=== PATIENT | female | born 1935 | race Caucasian/White ===

== ENCOUNTER 2016-06-21 12:35 | Inpatient (IN) | payer OTHER ==
[2016-06-21 12:46] VITALS: BMI 37.0
[2016-06-21] MEDS ORDERED: ZOFRAN 4 MG/2 ML IVP STA (12:55)
[2016-06-21] MEDS ORDERED: MORPHINE 2 MG/ML SYRINGE IVP STA (12:58)
[2016-06-21 13:07] LABS: ABG PCO2 43.1 mmHg (35-45); ABG PH 7.338 (7.35-7.45)
[2016-06-21 13:08] LABS: ABG BASE EXCESS -3 (-2.0-2.0); ABG HCO3 23.2 (22.0-26.0); ABG TCO2 24 (22.0-28.0)
[2016-06-21 13:23] LABS: BASOPHILS % (AUTO) 0.2 % (0.0-3.0); EOSINOPHILS % (AUTO) 0.1 % (0.0-7.0); HEMATOCRIT 37.4 % (37.0-47.0); HEMOGLOBIN 11.6 g/dl (12.0-16.0); IMMATURE GRANULOCYTE % (AUTO) 0.4 % (0.0-5.0); LYMPHOCYTES # (AUTO) 0.4 K/uL (0.60-3.4); LYMPHOCYTES % (AUTO) 3.5 (10.0-50.0); MEAN CORPUSCULAR HEMOGLOBIN 30.6 pg (27.0-31.0); MEAN CORPUSCULAR VOLUME 98.7 fl (81.0-99.0); MONOCYTES # (AUTO) 0.9 K/uL (0.4-2.0); MONOCYTES % (AUTO) 8.2 (0-10); NEUTROPHILS # (AUTO) 9.5 K/ul (2.0-6.9); NEUTROPHILS % (AUTO) 87.6; PLATELET COUNT 129 10^3/uL (140-440); RED BLOOD COUNT 3.79 10^6/ul (4.20-5.40); WHITE BLOOD COUNT 10.79 K/ul (4.6-10.2)
--- NOTE | 2016-06-21 13:54 | DI ---
[facility] Diagnostic Report YASMINE ROCHA :1935 CHEST, 1V AP ONLY DOS:06/21/2016 EXAM: Chest one view, frontal view only. HISTORY: Chest pain. COMPARISON: 05/26/2016. FINDINGS: Median sternotomy wires, prosthetic cardiac valve and left-sided pacemaker noted. Heart is enlarged. Atherosclerotic calcifications are present. There is no pulmonary vascular congestion. The lungs are clear. No pleural effusion or pneumothorax is seen. No acute osseous abnormality i s identified. Since the prior study, there has been no significant interval change. IMPRESSION: No acute cardiopulmonary process. THIS IS AN ELECTRONICALLY VERIFIED REPORT 06/21/2016 1:49 PM: Manuelito Gaffney M.D. Manuelito Gaffney M.D. TD: 06/21/2016 01:49 PM MARK / MARK
[2016-06-21] MEDS ORDERED: SOLU-MEDROL 125 MG IVP STA (14:24)
[2016-06-21 14:26] LABS: ALBUMIN 3.7 g/dL (3.4-5.0); ALBUMIN/GLOBULIN RATIO 1.03; ANION GAP 17.2; BILIRUBIN,TOTAL 1.3 mg/dL (0.00-1.20); BUN/CREATININE RATIO 26.85; CALCIUM 9.9 mg/dL (8.2-10.2); CREATININE 2.16 mg/dL (0.60-1.30); POTASSIUM 4.2 mmol/L (3.5-5.10); TOTAL PROTEIN 7.3 g/dL (5.8-8.1); TROPONIN I 0.045 ng/ml (0.0000-0.4000)
[2016-06-21] MEDS ORDERED: DUONEB NEB STA (14:55)
[2016-06-21 15:00] LABS: PROTHROMBIN TIME 47.7 SEC (9.3-11.0)
--- NOTE | 2016-06-21 15:59 | ED.PDOC ---
General ED Provider: Dr. YOSELIN TORRES JR Chief Complaint: Shortness of Air Stated Complaint: patient was being seen at dr. hall's office for follow up after admission for cellulitis left leg. while at the office it was noted patient has cyanotic nail beds and cough and congestion. both legs swollen and tight.[End]98.3 100 28 80% 153/60 patient states that right lower abd. hurts when she coughs[End]. anem chol afib kd arth cad. DIANDRA ROCHA STATES THAT PATIENT'S SON DOES NOT WANT PATIENT PLACED BACK ON NAMENDA OR ANY ALZHEIMERS MEDICATIONS. HE TOLD HER THAT HE WOULD DAVIDA IF SHE WAS PLACED BACK ON ANY. [ End ] Time Seen by Physician: 12:40 Mode of Arrival: Wheelchair Information Source: Patient, Family Exam Limitations: Clinical condition Primary Care Provider: AMANDO HALL Nursing and Triage Documentation Reviewed and Agree: No Review of Systems - Review Of Systems Constitutional: Reports: Malaise, Weakness Eyes: Reports: No symptoms Ears, Nose, Mouth, Throat: Reports: No symptoms Respiratory: Reports: Cough, Short of air Musculoskeletal: Reports: Muscle pain Skin: Reports: Change in color, Cyanosis Neurological: Reports: No symptoms Endocrine: Reports: No symptoms Hematologic/Lymphatic: Reports: No symptoms All Other Systems: Other Past Medical History - Past Medical History Previously Healthy: No Endocrine: Reports: Dyslipidemia Cardiovascular: Reports: CAD, A-Fib Respiratory: Reports: None Hematological: Reports: Anemia Gastrointestinal: Reports: None Genitourinary: Reports: CKD Neuro/Psych: Reports: None Musculoskeletal: Reports: Arthritis Cancer: Reports: None Last Menstrual Period: n/a Other Pertinent Past Medical History: anemia chol afib kd arth cad valve replacement--bladder surg--knee surg - Surgical History General Surgical History: Reports: Orthopedic (knee surg), Other (-bladder surg- -). Denies: CABG (valve replacement-) - Family History Family History: Reports: Unknown - Social History Smoking Status: Former smoker Hx Substance Use: No Alcohol Screening: None Physical Exam - Physical Exam Appearance: Ill-appearing, Thin Ill-appearing: Severe Pain Distress: Moderate Neck: Supple Respiratory: Airway patent, Breath sounds diminished, Wheezes Cardiovascular: RRR GI/: Soft, Tender Musculoskeletal: Limited ROM, Limited strength Skin: Warm, Cyanotic Neurological: Alert, Disoriented Interpretation - Radiology Interpretation Radiology Interpretation By: Radiologist Radiology Results: Negative Exam Interpreted: Other (leg ultrasound) - EKG Interpretation Time of EKG #1: 12:55 Rhythm: Other (paced) ST Segment: Other (twave inversion v5 v6 v1 v2) Physician Notification - Case Discussed Physician Notified: JOSE Time of Notification: 16:59 (admit hold lasix hold coumadin give 30cc/hr breathing rx and steroid rx) Critical Care Note - Critical Care Note Total Time (mins): 20 Course - Course Hematology/Chemistry: 06/21/16 13:05 06/21/16 13:05 Orders, Labs, Meds: Lab Review 06/21/16 06/21/16 13:00 13:05 WBC 10.79 H RBC 3.79 L Hgb 11.6 L Hct 37.4 MCV 98.7 MCH 30.6 MCHC 31.0 L RDW Coeff of Naima 16.2 H Plt Count 129 L Immature Gran % (Auto) 0.4 Neut % (Auto) 87.6 Lymph % (Auto) 3.5 L Gaines % (Auto) 8.2 Eos % (Auto) 0.1 Baso % (Auto) 0.2 Immature Gran # (Auto) 0.0 Neut # 9.5 H Lymph # 0.4 L Gaines # 0.9 Eos # 0.0 Baso # 0.0 PT 47.7 H INR 4.63 H* D-Dimer 952.09 H Puncture Site R brach O2 Saturation 83.0 L ABG pH 7.338 L ABG pCO2 43.1 ABG pO2 50.0 L* ABG HCO3 23.2 ABG Total CO2 24 ABG Base Excess -3 L Christoph Test + FiO2 % 21.0 Sodium 144 Potassium 4.2 Chloride 105 Carbon Dioxide 26 Anion Gap 17.2 BUN 58 H Creatinine 2.16 H Estimated GFR (MDRD) 22.00 BUN/Creatinine Ratio 26.85 Glucose 159 H Lactic Acid 19.0 Calcium 9.9 Total Bilirubin 1.30 H AST 56 H ALT 47 Alkaline Phosphatase 54 Total Creatine Kinase 108 Troponin I 0.0450 B-Natriuretic Peptide 2180 H Total Protein 7.3 Albumin 3.7 Globulin 3.6 Albumin/Globulin Ratio 1.03 Orders Category Date Time Status ADMIT PATIENT INPATIENT .TO [facility] (MONITORED BED) ADMISSION 06/21/16 16: 50 Active ABG DRAW REQUEST Stat CARDIO 06/21/16 12:49 Completed EKG-(ED ONLY) Stat CARDIO 06/21/16 12:48 Completed NEBULIZER TREATMENT Routine CARDIO 06/21/16 16:58 Ordered NEBULIZER TREATMENT Stat CARDIO 06/21/16 14:56 Completed ACTIVITY .BR with BRP CARE 06/21/16 16:50 Active ACTIVITY .Early Mobilization for VTE Prevention CARE 06/21/16 16:50 Active INTAKE & OUTPUT Q8HR CARE 06/21/16 16:51 Active TELEMETRY MONITORING TELE CARE 06/21/16 16:53 Active CARDIAC DIET DIETARY 06/21/16 Dinner Ordered ED IV/MEDIPORT/POWERPORT .ONCE EMERGENCY 06/21/16 12:48 Active O2 [ED APPLY O2] .ONCE EMERGENCY 06/21/16 12:50 Active ABG Stat LAB 06/21/16 13:00 Completed B-TYPE NATRIURETIC PEPTIDE Stat LAB 06/21/16 13:05 Completed BLOOD CULTURE Stat LAB 06/21/16 13:05 Received CBC W/ AUTO DIFF DAILY@0600 LAB 06/22/16 06:00 Ordered CBC W/ AUTO DIFF DAILY@0600 LAB 06/23/16 06:00 Ordered CBC W/ AUTO DIFF DAILY@0600 LAB 06/24/16 06:00 Ordered CBC W/ AUTO DIFF DAILY@0600 LAB 06/25/16 06:00 Ordered CBC W/ AUTO DIFF DAILY@0600 LAB 06/26/16 06:00 Ordered CBC W/ AUTO DIFF DAILY@0600 LAB 06/27/16 06:00 Ordered CBC W/ AUTO DIFF DAILY@0600 LAB 06/28/16 06:00 Ordered CBC W/ AUTO DIFF DAILY@0600 LAB 06/29/16 06:00 Ordered CBC W/ AUTO DIFF DAILY@0600 LAB 06/30/16 06:00 Ordered CBC W/ AUTO DIFF DAILY@0600 LAB 07/01/16 06:00 Ordered CBC W/ AUTO DIFF DAILY@0600 LAB 07/02/16 06:00 Ordered CBC W/ AUTO DIFF DAILY@0600 LAB 07/03/16 06:00 Ordered CBC W/ AUTO DIFF DAILY@0600 LAB 07/04/16 06:00 Ordered CBC W/ AUTO DIFF DAILY@0600 LAB 07/05/16 06:00 Ordered CBC W/ AUTO DIFF DAILY@0600 LAB 07/06/16 06:00 Ordered CBC W/ AUTO DIFF DAILY@0600 LAB 07/07/16 06:00 Ordered CBC W/ AUTO DIFF DAILY@0600 LAB 07/08/16 06:00 Ordered CBC W/ AUTO DIFF DAILY@0600 LAB 07/09/16 06:00 Ordered CBC W/ AUTO DIFF DAILY@0600 LAB 07/10/16 06:00 Ordered CBC W/ AUTO DIFF DAILY@0600 LAB 07/11/16 06:00 Ordered CBC W/ AUTO DIFF Stat LAB 06/21/16 13:05 Completed COMPREHENSIVE METABOLIC PANEL DAILY@0600 LAB 06/22/16 06:00 Ordered COMPREHENSIVE METABOLIC PANEL DAILY@0600 LAB 06/23/16 06:00 Ordered COMPREHENSIVE METABOLIC PANEL DAILY@0600 LAB 06/24/16 06:00 Ordered COMPREHENSIVE METABOLIC PANEL DAILY@0600 LAB 06/25/16 06:00 Ordered COMPREHENSIVE METABOLIC PANEL DAILY@0600 LAB 06/26/16 06:00 Ordered COMPREHENSIVE METABOLIC PANEL DAILY@0600 LAB 06/27/16 06:00 Ordered COMPREHENSIVE METABOLIC PANEL DAILY@0600 LAB 06/28/16 06:00 Ordered COMPREHENSIVE METABOLIC PANEL DAILY@0600 LAB 06/29/16 06:00 Ordered COMPREHENSIVE METABOLIC PANEL DAILY@0600 LAB 06/30/16 06:00 Ordered COMPREHENSIVE METABOLIC PANEL DAILY@0600 LAB 07/01/16 06:00 Ordered COMPREHENSIVE METABOLIC PANEL DAILY@0600 LAB 07/02/16 06:00 Ordered COMPREHENSIVE METABOLIC PANEL DAILY@0600 LAB 07/03/16 06:00 Ordered COMPREHENSIVE METABOLIC PANEL DAILY@0600 LAB 07/04/16 06:00 Ordered COMPREHENSIVE METABOLIC PANEL DAILY@0600 LAB 07/05/16 06:00 Ordered COMPREHENSIVE METABOLIC PANEL DAILY@0600 LAB 07/06/16 06:00 Ordered COMPREHENSIVE METABOLIC PANEL DAILY@0600 LAB 07/07/16 06:00 Ordered COMPREHENSIVE METABOLIC PANEL DAILY@0600 LAB 07/08/16 06:00 Ordered COMPREHENSIVE METABOLIC PANEL DAILY@0600 LAB 07/09/16 06:00 Ordered COMPREHENSIVE METABOLIC PANEL DAILY@0600 LAB 07/10/16 06:00 Ordered COMPREHENSIVE METABOLIC PANEL DAILY@0600 LAB 07/11/16 06:00 Ordered COMPREHENSIVE METABOLIC PANEL Stat LAB 06/21/16 13:05 Completed CREATINE KINASE Stat LAB 06/21/16 13:05 Completed D-DIMER Stat LAB 06/21/16 13:05 Completed LACTIC ACID Stat LAB 06/21/16 13:05 Completed PT WITH INR DAILY@0600 LAB 06/22/16 06:00 Ordered PT WITH INR DAILY@0600 LAB 06/23/16 06:00 Ordered PT WITH INR DAILY@0600 LAB 06/24/16 06:00 Ordered PT WITH INR DAILY@0600 LAB 06/25/16 06:00 Ordered PT WITH INR DAILY@0600 LAB 06/26/16 06:00 Ordered PT WITH INR DAILY@0600 LAB 06/27/16 06:00 Ordered PT WITH INR DAILY@0600 LAB 06/28/16 06:00 Ordered PT WITH INR DAILY@0600 LAB 06/29/16 06:00 Ordered PT WITH INR DAILY@0600 LAB 06/30/16 06:00 Ordered PT WITH INR DAILY@0600 LAB 07/01/16 06:00 Ordered PT WITH INR DAILY@0600 LAB 07/02/16 06:00 Ordered PT WITH INR DAILY@0600 LAB 07/03/16 06:00 Ordered PT WITH INR DAILY@0600 LAB 07/04/16 06:00 Ordered PT WITH INR DAILY@0600 LAB 07/05/16 06:00 Ordered PT WITH INR DAILY@0600 LAB 07/06/16 06:00 Ordered PT WITH INR DAILY@0600 LAB 07/07/16 06:00 Ordered PT WITH INR DAILY@0600 LAB 07/08/16 06:00 Ordered PT WITH INR DAILY@0600 LAB 07/09/16 06:00 Ordered PT WITH INR DAILY@0600 LAB 07/10/16 06:00 Ordered PT WITH INR DAILY@0600 LAB 07/11/16 06:00 Ordered PT WITH INR Stat LAB 06/21/16 13:05 Completed TROPONIN I Stat LAB 06/21/16 13:05 Completed 0.9 % Sodium Chloride [Saline Flush] MEDS 06/21/16 12:48 Active 1 syr IVF PRN PRN Albuterol Sulfate 0.083% Neb [Albuterol 0.083% Neb] MEDS 06/21/16 20:00 Ordered 1 vial NEB RTQID Bimatoprost Opth [Lumigan] MEDS 06/21/16 21:00 Ordered 1 drop OP 2100 Ferrous Sulfate [Ferrous Sulfate] MEDS 06/22/16 09:00 Ordered 325 mg PO DAILY Ipratropium/Albuterol Neb [Duoneb] MEDS 06/21/16 14:55 Discontinued 1 vial NEB ONCE STA Methylprednisolone Sod Succ/Pf [Solu-Medrol 125 mg] MEDS 06/21/16 14:24 Discontinued 125 mg IVP ONCE STA Methylprednisolone Sod Succ/Pf [Solu-Medrol 125 mg] MEDS 06/21/16 21:00 Ordered 125 mg IVP Q8HR Metoprolol Tartrate [Lopressor] MEDS 06/21/16 21:00 Ordered 50 mg PO BID Multivitamin [Multi-Vitamin Daily] MEDS 06/22/16 09:00 Ordered 1 tab PO DAILY Bells-3/Dha/Epa/Fish Oil [Bells 3 500 Softgel] MEDS 06/21/16 21:00 Ordered 2 tab PO BID Potassium Chloride [K-Dur] MEDS 06/22/16 09:00 Ordered 10 meq PO DAILY Sodium Chloride 0.9% [Sodium Chloride] 1,000 ml MEDS 06/21/16 17:00 Ordered IV 30 mls/hr Trihexyphenidyl HCl [Trihexyphenidyl HCl] MEDS 06/21/16 21:00 Ordered 0.5 tab PO BID Vit D3/Folic Acid/B2/B6/B12 [Folgard Tablet] MEDS 06/28/16 09:00 Ordered 50,000 units PO WEEKLY RESUSCITATION STATUS Routine OTHERS 06/21/16 16:50 Ordered CHEST, 1V AP ONLY Stat RADS 06/21/16 12:48 Completed U/S VENOUS SCAN TRACI LEGS Stat RADS 06/21/16 12:49 Taken Medications Generic Name Dose Route Start Last Admin Trade Name Freq PRN Reason Stop Dose Admin Albuterol Sulfate 1 vial 06/21/16 20:00 Albuterol 0.083% Neb NEB RTQID KEEGAN Bimatoprost 1 drop 06/21/16 21:00 Lumigan OP 2100 KEEGAN Sodium Chloride 1,000 mls @ 30 mls/hr 06/21/16 17:00 Sodium Chloride IV .[id number] KEEGAN Methylprednisolone Sodium Succinate 125 mg 06/21/16 21:00 Solu-Medrol 125 Mg IVP Q8HR KEEGAN Metoprolol Tartrate 50 mg 06/21/16 21:00 Lopressor PO BID KEEGAN Non-Formulary Medication 50,000 units 06/28/16 09:00 Vit D3/Folic Acid/B2/B6/B12 [Folgard Tablet] PO WEEKLY KEEGAN Non-Formulary Medication 0.5 tab 06/21/16 21:00 Trihexyphenidyl Hcl [Trihexyphenidyl Hcl] PO BID KEEGAN Non-Formulary Medication 2 tab 06/21/16 21:00 Bells-3/Dha/Epa/Fish Oil [Bells 3 500 Softgel] PO BID KEEGAN Non-Formulary Medication 325 mg 06/22/16 09:00 Ferrous Sulfate [Ferrous Sulfate] PO DAILY KEEGAN Non-Formulary Medication 1 tab 06/22/16 09:00 Multivitamin [Multi-Vitamin Daily] PO DAILY KEEGAN Potassium Chloride 10 meq 06/22/16 09:00 K-Dur PO DAILY KEEGAN Sodium Chloride 1 syr 06/21/16 12:48 06/21/16 14:40 Saline Flush IVF 1 syr PRN PRN Administration To flush IV Discontinued Medications Generic Name Dose Route Start Last Admin Trade Name Freq PRN Reason Stop Dose Admin Albuterol/Ipratropium 1 vial 06/21/16 14:55 06/21/16 15:09 Duoneb NEB 06/21/16 14:56 1 vial ONCE STA Administration Methylprednisolone Sodium Succinate 125 mg 06/21/16 14:24 06/21/16 14:39 Solu-Medrol 125 Mg IVP 06/21/16 14:25 125 mg ONCE STA Administration Vital Signs: Temp Pulse Resp BP Pulse Ox 06/21/16 12:37 98.3 F 100 H 28 H 153/60 H 80 L Departure - Departure Time of Disposition: 16:45 Disposition: ADMITTED INPATIENT Discharge Problem: CHF (congestive heart failure), Renal failure (ARF), acute on chronic Condition: Stable Pt referred to PMD for follow-up: Yes Allergies/Adverse Reactions: Allergies codeine Adverse Reaction (Verified 05/17/16 11:21) Vomiting escitalopram [From Lexapro] Adverse Reaction (Verified 06/21/16 13:29) morphine Adverse Reaction (Verified 05/17/16 11:21) Confusion nifedipine [From Procardia] Adverse Reaction (Verified 05/17/16 11:21) pioglitazone HCl [From Actos] Adverse Reaction (Verified 05/17/16 11:21) Vomiting propoxyphene napsylate [From Darvocet-N 100] Adverse Reaction (Verified 11:21) Vomiting ropinirole [From Requip] Adverse Reaction (Verified 06/21/16 13:29) ropinirole HCl [From Requip] Adverse Reaction (Verified 05/17/16 11:21) Vomiting Upcgbbi-Npg-Xwx Reductase Inhibitor Adverse Reaction (Verified 05/17/16 11:21) Vomiting pink dye Allergy (Uncoded 08/22/13 04:59) Home Medications: Ambulatory Orders Bimatoprost Opth [Lumigan] 1 drop OP 2100 11/23/12 Metoprolol Tartrate [Lopressor] 50 mg PO BID 11/23/12 Ferrous Sulfate 325 mg PO DAILY 05/26/16 Multivitamin [Multi-Vitamin Daily] 1 tab PO DAILY 05/26/16 Bells-3/Dha/Epa/Fish Oil [Bells 3 500 Softgel] 2 tab PO BID 05/26/16 Trihexyphenidyl HCl 0.5 tab PO BID 05/26/16 Vit D3/Folic Acid/B2/B6/B12 [Folgard Tablet] 50,000 units PO WEEKLY 05/26/16 Warfarin Sodium [Coumadin] 5 mg PO QPM #30 tablet 06/01/16 Furosemide [Lasix Tab] 20 mg PO QDAC #30 tablet 06/11/16 Potassium Chloride [K-Dur] 10 meq PO DAILY #30 tab 06/11/16
[2016-06-21] MEDS ORDERED: ALBUTEROL 0.083% NEB NEB SCH (20:00)
[2016-06-21] MEDS: SODIUM CHLORIDE 1,000 ML IV SCH (21:00)
[2016-06-21] MEDS ORDERED: OMEGA PO SCH (21:00)
[2016-06-21] MEDS ORDERED: FISH OIL PO SCH (21:00)
[2016-06-21] MEDS ORDERED: TRIHEXYPHENIDYL HCL PO SCH (21:00)
[2016-06-21] MEDS ORDERED: EPA PO SCH (21:00)
[2016-06-21] MEDS ORDERED: DHA PO SCH (21:00)
[2016-06-21] MEDS ORDERED: LOPRESSOR PO SCH (21:00)
[2016-06-21] MEDS ORDERED: LOPRESSOR ONE (21:48)
[2016-06-21] MEDS ORDERED: OMEGA-3 FISH OIL ONE (21:49)
[2016-06-21] MEDS: SOLU-MEDROL 125 MG IVP SCH (21:50)
[2016-06-21] MEDS: LUMIGAN OP SCH (21:50)
[2016-06-21] MEDS: DUONEB NEB SCH (22:51)
[2016-06-22] MEDS: SOLU-MEDROL 125 MG IVP SCH ×3 (05:17→20:26)
[2016-06-22 05:22] LABS: BASOPHILS % (AUTO) 0.5 % (0.0-3.0); HEMATOCRIT 34.2 % (37.0-47.0); HEMOGLOBIN 10.4 g/dl (12.0-16.0); IMMATURE GRANULOCYTE % (AUTO) 0.3 % (0.0-5.0); LYMPHOCYTES # (AUTO) 0.2 K/uL (0.60-3.4); LYMPHOCYTES % (AUTO) 3.8 (10.0-50.0); MEAN CORPUSCULAR HGB CONC 30.4 (31.8-35.4); MEAN CORPUSCULAR VOLUME 98.6 fl (81.0-99.0); MONOCYTES # (AUTO) 0.2 K/uL (0.4-2.0); MONOCYTES % (AUTO) 3.8 (0-10); NEUTROPHILS # (AUTO) 5.7 K/ul (2.0-6.9); NEUTROPHILS % (AUTO) 91.6; PLATELET COUNT 94 10^3/uL (140-440); RED BLOOD COUNT 3.47 10^6/ul (4.20-5.40); WHITE BLOOD COUNT 6.24 K/ul (4.6-10.2)
[2016-06-22] MEDS: DUONEB NEB SCH ×4 (05:25→22:20)
[2016-06-22 06:01] LABS: ANION GAP 13.9; BILIRUBIN,TOTAL 1.04 mg/dL (0.00-1.20); BUN/CREATININE RATIO 29.44; CALCIUM 9.3 mg/dL (8.2-10.2); CREATININE 1.8 mg/dL (0.60-1.30); POTASSIUM 3.9 mmol/L (3.5-5.10)
[2016-06-22 06:09] LABS: PROTHROMBIN TIME 51.3 SEC (9.3-11.0)
[2016-06-22] MEDS: MICRO-K CAP PO SCH (08:50)
[2016-06-22] MEDS: FERROUS SULFATE PO SCH (08:50)
[2016-06-22] MEDS: OMEGA-3 FISH OIL PO SCH ×2 (08:50→20:27)
[2016-06-22] MEDS: LOPRESSOR PO SCH ×2 (08:50→20:27)
[2016-06-22] MEDS: MULTIVITAMIN PO SCH (08:50)
[2016-06-22] MEDS: TRIHEXYPHENIDYL HCL PO SCH ×2 (08:52→20:30)
[2016-06-22] MEDS ORDERED: NON-FORMULARY MEDICATION (Multivitamin [Multi-Vitamin Daily] 1 TAB) PO SCH (09:00)
[2016-06-22] MEDS ORDERED: NON-FORMULARY MEDICATION (Ferrous Sulfate [Ferrous Sulfate] 325 MG) PO SCH ×22 (09:00)
[2016-06-22] MEDS ORDERED: K-DUR PO SCH (09:00)
--- NOTE | 2016-06-22 11:27 | PCM.PROG ---
Attending Provider: ATTENDING PROVIDER: Dr. VANE GARCIA DATE OF SERVICE: 06/22/16 SUBJECTIVE: This 81 year old WHITE/ F was hospitalized 06/21/16. The patient is admitted with shortness of breath, hypoxemia and URI. The patient is feeling better with less cough. The family agrees for chcf placement as the patient is unable to take of herself at home. REVIEW OF SYSTEMS: CONSTITUTIONAL: No fever, no chills. ENDOCRINE: No weight loss or weight gain. HEENT: No sinus drainage, no sore throat. CVS: No angina symptoms. No CHF symptoms. No palpitations. No atypical chest pain for CAD. No shortness of breath. RESPIRATORY: No cough, no hemoptysis. GI: No melena. No abdominal pain. No nausea, no vomiting. : No hematuria. No polyuria. SKIN: No rash. Multiple freckles. MUSCULOSKELETAL: No pain. FULL SERVICE SUPERVISOR: No blackout, no dizziness. No headache. No double vision. PSYCHIATRIC: Not anxious; no depression. No suicidal thoughts. No homicidal thoughts. PHYSICAL EXAMINATION: GENERAL: Lying in bed in no distress. VITAL SIGNS: Temperature 97 F, Pulse 102, Respiratory Rate 14, BP 127/49, Pulse Ox 97% HEENT: Normocephalic, atraumatic. Mucosa is dry, pallor positive. NECK: No JVP, no carotid bruit. No lymphadenopathy. CARDIAC: S1, S2, no S3. Systolic murmur. LUNGS: Decreased entry with some rhonchi. ABDOMEN: Soft, non-tender. Bowel sounds active. No rigidity, guarding or CVA tenderness. EXTREMITIES: 1+ edema lower extremities bilaterally with some wrinkles. No clubbing, cyanosis. NEUROLOGIC: Awake, alert and oriented x3. LYMPHATIC: No palpable lymph nodes SKIN: Not dry. Intact. MUSCULOSKELETAL: No joint swelling. LAB REVIEW: 06/22/16 05:21 06/22/16 05:21 06/22/16 05:21: WBC 6.24, RBC 3.47 L, Hgb 10.4 L, Hct 34.2 L, MCV 98.6, MCH 30.0 , MCHC 30.4 L, RDW Coeff of Naima 16.3 H, Plt Count 94 L, Immature Gran % (Auto) 0.3, Neut % (Auto) 91.6, Lymph % (Auto) 3.8 L, [place] % (Auto) 3.8, Eos % (Auto) 0.0, Baso % (Auto) 0.5, Immature Gran # (Auto) 0.0, Neut # 5.7, Lymph # 0.2 L, [place] # 0.2 L, Eos # 0.0, Baso # 0.0, PT 51.3 H, INR 4.98 H*, Sodium 143, Potassium 3.9, Chloride 110 H, Carbon Dioxide 23, Anion Gap 13.9, BUN 53 H, Creatinine 1.80 H, Estimated GFR (MDRD) 27.00, BUN/Creatinine Ratio 29.44, Glucose 179 H, Calcium 9.3, Total Bilirubin 1.04, AST 38 H, ALT 39, Alkaline Phosphatase 42 L, Total Protein 6.0, Albumin 3.0 L, Globulin 3.0, Albumin/ Globulin Ratio 1.00 ASSESSMENT: 1. URI 2. Acute on chronic heart failure 3. Chronic renal failure 4. Hypertension 5. Coronary artery disease 6. CABG 7. Dyslipidemia 8. Chronic dependent edema PLAN: 1. Encouraged to keep legs elevated 2. Evaluate for [facility] 3. Continue alycia hassan 4. IV fluids 30 mL/hr Plan and coordination of the patient's care discussed in the presence of Jewelry Salesperson and nurse. CONDITION: STABLE SCRIBED BY: ANGEL MUELLER Manager Furniture scribed while in presence of service performed by Dr. VANE GARCIA on 06/22/16 ([id number])
[2016-06-22] MEDS: LUMIGAN OP SCH (20:27)
[2016-06-23] MEDS: DUONEB NEB SCH ×2 (04:40→10:02)
[2016-06-23 05:20] LABS: HEMATOCRIT 32.3 % (37.0-47.0); HEMOGLOBIN 9.9 g/dl (12.0-16.0); MEAN CORPUSCULAR HEMOGLOBIN 30.1 pg (27.0-31.0); MEAN CORPUSCULAR HGB CONC 30.7 (31.8-35.4); MEAN CORPUSCULAR VOLUME 98.2 fl (81.0-99.0); PLATELET COUNT 92 10^3/uL (140-440); RED BLOOD COUNT 3.29 10^6/ul (4.20-5.40); WHITE BLOOD COUNT 6.21 K/ul (4.6-10.2)
[2016-06-23 05:36] LABS: ALBUMIN/GLOBULIN RATIO 0.94; ANION GAP 14.1; ANISOCYTOSIS NOT PRESENT (NOT PRESENT); BILIRUBIN,TOTAL 0.96 mg/dL (0.00-1.20); BUN/CREATININE RATIO 31.97; CALCIUM 9.4 mg/dL (8.2-10.2); CREATININE 1.72 mg/dL (0.60-1.30); POTASSIUM 4.1 mmol/L (3.5-5.10); TOTAL PROTEIN 6.2 g/dL (5.8-8.1)
[2016-06-23 05:51] LABS: PROTHROMBIN TIME 43.3 SEC (9.3-11.0)
[2016-06-23] MEDS: SOLU-MEDROL 125 MG IVP SCH (06:00)
[2016-06-23] MEDS: SODIUM CHLORIDE 1,000 ML IV SCH (07:03)
[2016-06-23] MEDS ORDERED: PROTONIX PO SCH (08:30)
[2016-06-23] MEDS: FERROUS SULFATE PO SCH (08:51)
[2016-06-23] MEDS: OMEGA-3 FISH OIL PO SCH (08:51)
[2016-06-23] MEDS: MULTIVITAMIN PO SCH (08:51)
[2016-06-23] MEDS: MICRO-K CAP PO SCH (08:51)
[2016-06-23] MEDS: LOPRESSOR PO SCH (08:52)
--- NOTE | 2016-06-23 09:42 | US ---
EXAM: Pedersen scale and color Doppler imaging of the bilateral lower extremities venous structures. COMPARISON: None available. Reason for study: Leg swelling, rule out DVT. FINDINGS: RIGHT LEG: There is spontaneous flow with compression and augmentation seen in the common femoral, greater saph enous, profunda, superficial femoral, popliteal, peroneal, posterior tibial, and anterior tibial vei ns. LEFT LEG: There is spontaneous flow with compression and augmentation demonstrated in the common femoral, grea ter saphenous, profunda, superficial femoral, popliteal, peroneal, posterior tibial, and anterior ti bial veins. IMPRESSION: No ultrasonographic evidence of deep venous thrombosis is seen in either lower extremit y.
--- NOTE | 2016-06-23 10:27 | CM.DICTOOL ---
ADMISSION: 06/21/16 17:41 DISCHARGE: 06/21/16 TO [facility] DATE OF SERVICE: 06/21/16 FINAL DIAGNOSIS CHF, ACUTE RENAL FAILURE, ACUTE ON CHRONIC LEG EDEMA VENOUS STASIS ULCER LEFT ANTEROLATERAL BELLO (HEALED) FREQUENT FALLS AT HOME ATAXIA SHORTNESS OF BREATH WITH SOME CONFUSION ANEMIA HYPERTENSION CVA BY HISTORY CHRONIC KIDNEY DISEASE, STAGE 3 PARKINSON'S DISEASE DEMENTIA ATRIAL FIBRILLATION DYSLIPIDEMIA OA/OP S/P PACEMAKER INSERTION AORTIC VALUE REPLACEMENT WITH ONE VESSEL CABG CHOLECYSTECTOMY LAST VITALS Temp Pulse Resp BP Pulse Ox 96.5 F L 103 H 24 153/76 H 98 06/23/16 05:38 06/23/16 05:38 06/23/16 05:38 06/23/16 05:38 06/23/16 05:38 ACTIVE HOME MEDICATIONS Albuterol/Ipratropium (Duoneb) 1 vial NEB RTQID [facility] Last Admin: 06/23/16 04:40 Dose: 1 vial Bimatoprost (Lumigan) 1 drop OP 2100 [facility] Last Admin: 06/22/16 20:27 Dose: 1 drop Ferrous Sulfate (Ferrous Sulfate) 324 mg PO DAILY [facility] Last Admin: 06/23/16 08:51 Dose: 324 mg Fish Oil (Thornton-3 Fish Oil) 2,000 mg PO BID [facility] Last Admin: 06/23/16 08:51 Dose: 2,000 mg Furosemide (Lasix) 20 mg, PO DAILY QOD M,,F,SA Metoprolol Tartrate (Lopressor) 50 mg PO BID [facility] Last Admin: 06/23/16 08:52 Dose: 50 mg Multivitamins (Multivitamin) 1 cap PO DAILY [facility] Last Admin: 06/23/16 08:51 Dose: 1 cap Vit D3/Folic Acid/B2/B6/B12 [Folgard Tablet] 50,000 units PO WEEKLY [facility] Trihexyphenidyl Hcl [Trihexyphenidyl Hcl] 0.5 tab PO BID [facility] Last Admin: 06/22/16 20:30 Dose: Not Given Pantoprazole Sodium (Protonix) 40 mg PO QDAC [facility] Last Admin: 06/23/16 08:51 Dose: 40 mg Potassium Chloride (Micro-K Cap) 10 meq PO QOD M,,F,SA DAILY [facility] Last Admin: 06/23/16 08:51 Dose: 10 meq Warfarin Sodium (Coumadin) 5 mg PO Q PM hold DENOTES NEW MEDS OR CHANGES IN MEDICATIONS DURING THE HOSPITALIZATION THAT WILL BE CONTINUED AFTER DISCHARGE THE PATIENT HAD BEEN PRESCRIBED ARICEPT AND NAMENDA DURING THE LAST HOSPITALIZATION FOR HER DEMENTIA. THE FAMILY DECLINED THE MEDICATIONS. ALLERGIES codeine Adverse Reaction (Verified 05/17/16 11:21) Vomiting escitalopram [From Lexapro] Adverse Reaction (Verified 06/21/16 13:29) morphine Adverse Reaction (Verified 05/17/16 11:21) Confusion nifedipine [From Procardia] Adverse Reaction (Verified 05/17/16 11:21) pioglitazone HCl [From Actos] Adverse Reaction (Verified 05/17/16 11:21) Vomiting propoxyphene napsylate [From Darvocet-N 100] Adverse Reaction (Verified 11:21) Vomiting ropinirole [From Requip] Adverse Reaction (Verified 06/21/16 13:29) ropinirole HCl [From Requip] Adverse Reaction (Verified 05/17/16 11:21) Vomiting Ybkbdkp-Dxo-Che Reductase Inhibitor Adverse Reaction (Verified 05/17/16 11:21) Vomiting pink dye Allergy (Uncoded 08/22/13 04:59) NEW PRESCRIPTIONS: RESUME YOUR HOME MEDICATIONS PER LIST PROVIDED BY THE NURSING STAFF NOTE THE ADMINISTRATION CHANGE WITH THE LASIX: GIVE 20 MG PO ON M, W, FRI AND SAT NOTE THE ADMINISTRATION CHANGE WITH THE POTASSIUM: GIVE 10 MEQ PO ON M, W, FRI AND SAT HOLD COUMADIN UNTIL INSTRUCTED BY DR. GARCIA NEW MEDICATIONS: MEDROL DOSE JESSIKA, GIVE DIRECTED GINA SHERIFF SMOKING: NONSMOKER LAB REVIEW: 06/23/16 05:18 06/23/16 05:18 06/23/16 05:18: WBC 6.21, RBC 3.29 L, Hgb 9.9 L, Hct 32.3 L, MCV 98.2, MCH 30.1 , MCHC 30.7 L, RDW Coeff of Naima 16.2 H, Plt Count 92 L, Neutrophils % (Manual) 92.0 H, Lymphocytes % (Manual) 5.0 L, Monocytes % (Manual) 3.0, PT 43.3 H D, INR 4.20 H*, Sodium 144, Potassium 4.1, Chloride 109 H, Carbon Dioxide 25, Anion Gap 14.1, BUN 55 H, Creatinine 1.72 H, Estimated GFR (MDRD) 28.00, BUN/ Creatinine Ratio 31.97, Glucose 212 H, Calcium 9.4, Total Bilirubin 0.96, AST 22 , ALT 31, Alkaline Phosphatase 38 L, Total Protein 6.2, Albumin 3.0 L, Globulin 3.2, Albumin/Globulin Ratio 0.94 PLAN: DISCHARGE TO [facility] TODAY DR. GARCIA/DR. CHAMBERS WILL FOLLOW THE PATIENT AT THE LONG TERM DURING USUAL ROUNDS IN ONE WEEK RESUME YOUR HOME MEDICATIONS PER LIST PROVIDED BY THE NURSING STAFF NOTE THE ADMINISTRATION CHANGE WITH THE LASIX: GIVE 20 MG PO ON M, W, FRI AND SAT NOTE THE ADMINISTRATION CHANGE WITH THE POTASSIUM: GIVE 10 MEQ PO ON M, W, TUE AND SAT HOLD COUMADIN UNTIL INSTRUCTED BY DR. GARCIA NEW MEDICATIONS: MEDROL DOSE JESSIKA, GIVE DIRECTED DUONEBS QID ACTIVITY: MAY PARTICIPATE IN LONG TERM ACTIVITY PROGRAM TOLERATED PT/OT/SPEECH PLEASE EVALUATE AND TREAT INDICATED TO THE DINING ROOM FOR ALL MEALS LABS: DAILY PT/INR PLEASE REPORT VALUES TO DR. GARCIA FOR INSTRUCTIONS WHEN TO RESTART COUMADIN CBC WITH DIFF AND CMP IN ONE WEEK, THEN Q 3 MONTHS HGAIC Q 6 MONTHS ACCU-CHECKS Q AM AND PRN OTHER ORDERS: V/S DAILY TERMINAL SYSTEM OPERATOR PLEASE CONSULT FOR OPTIMAL NUTRITIONAL NEEDS CONSISTENT CARBS SUMMARY: THE PATIENT IS ALERT AND ORIENTED TO PERSON AND PLACE. SHE BECOMES EASILY DISORIENTED AND FORGETFUL BUT REORIENTS EASILY. SHE CURRENTLY RESIDES AT HOME ALONE. HER SON (POA), KENNY ROCHA, RESIDES CLOSE BY AND PROVIDES FREQUENT CARE. SHE HAD BEEN RECEIVING HOME HEALTH AND BATHAIDE SERVICES FROM [facility]. AT DISCHARGE SHE AND HER SON DESIRE THAT SHE BE ADMITTED TO [facility]. HER SKIN TURGOR IS FAIR. THERE ARE MULTIPLE AREAS OF BRUISING TO THE ARMS. THE SKIN IS DRY AND FLAKING MORE TO THE LOWER EXTREMITIES WHERE EDEMA HAS RESOLVED. THERE ARE NO DECUBITUS ULCERS PRESENT ON DISCHARGE. VANE GARCIA M.D.
[2016-06-23] MEDS: TRIHEXYPHENIDYL HCL PO SCH (10:57)
--- NOTE | 2016-06-23 11:05 | HP ---
DATE OF SERVICE: 06/21/16 REASON FOR HOSPITALIZATION: Shortness of breath and worsening leg edema. HISTORY OF PRESENT ILLNESS: The patient is an 81 year old female who was recently discharged from the [facility] on the June 11 and was admitted for the dependant edema, acute on chronic renal failure and weakness. She went home and was not able to do good by herself. The patient is brought by the patient's granddaughter who is a caregiver complaining of cough, congestion and shortness of breath. Oxygen saturation was 84% on room air. ABG were done with showed the pH 7.338, pCO2 43.1, pO2 50, D-Dimer was positive 952, INR 4.63, BNP 2180, BUN 58, creatinine 2.16 and lactic acid is negative. Dr. Mirza saw the patient and was given some Solu-Medrol and Duo NEBS and the patient was still having trouble breathing and the patient can not be taken care of by herself and at that time the patient was admitted to the hospital for the acute on chronic respiratory failure secondary to the bronchitis and secondary to the heart failure and renal failure. REVIEW OF SYSTEMS: CONSTITUTIONAL: No night sweats. Weakness and tiredness. No fever or chills. HEENT: Eyes: No visual changes. No eye pain. No eye discharge. ENT: No runny nose. No epistaxis. No sinus pain. No sore throat. No odynophagia. No ear pain. No congestion. RESPIRATORY: Cough and congestion. No hemoptysis. CARDIOVASCULAR: No angina symptoms. No CHF symptoms. No atypical chest pain for CAD. No palpitations. Shortness of breath. GASTROINTESTINAL: No abdominal pain. No nausea or vomiting. No diarrhea or constipation. No hematemesis. No hematochezia. GENITOURINARY: No urgency. No frequency. No dysuria. No hematuria. No obstructive symptoms. No discharge. No pain. No significant abnormal bleeding. MUSCULOSKELETAL: No musculoskeletal pain. No joint swelling. No arthritis. NEUROLOGICAL: No headache. No neck pain. No syncope. No seizures. No dizziness. PSYCHIATRIC: Not anxious. No depression. No suicidal thoughts. No homicidal thoughts. SKIN: No rash. No lesions. No wounds. ENDOCRINE: No unexplained weight loss. No weight gain. HEMATOLOGIC/LYMPHATIC: No anemia. No purpura. No petechiae. No prolonged or excessive bleeding. No palpable lymph nodes. PERSONAL/FAMILY/SOCIAL HISTORY: The patient does not smoke or drink and is completely dependent upon the ADL's. Family history is significant for the DE, diabetes and brain cancer. PAST MEDICAL/SURGICAL PROBLEMS: Coronary artery disease Bypass surgery Aortic valve replacement Aortic stenosis Atrial fibrillation Hypertension Dyslipidemia Chronic kidney disease Dependant edema Gout Osteoarthritis DJD spine Knee replacement Cholecystectomy Hernia surgery Cataract surgery Aortic valve replacement, 08/12/03 by Celso Mendez Hiatal hernia repair MEDICATIONS: Metoprolol Ferrous sulfate Vitamin [place] 3 Folgard Coumadin Lasix Potassium Lumigan ALLERGIES: Codeine Citalopram Morphine Nifedipine Pioglitazone PHYSICAL EXAMINATION: VITAL SIGNS: Blood pressure 153/68, respiratory rate 28, heart rate 100, temperature 98.3 and saturation is 80% on 2 liters it went up to 92%. HEENT: Head normocephalic, atraumatic. Eyes: Extraocular muscles are intact. Pupils are equal, round and reactive to light and accommodation. Ears: No lesions. Nose appeared normal. Throat: No exudate or erythema. Mucosa dry. Pallor positive. No icterus. NECK: Supple. No JVD, no carotid bruit. No lymphadenopathy or thyromegaly. LUNGS: Clear to auscultation. Percussion note normal. Chest symmetrical. HEART: S1, S2, no S3. Systolic murmur. No cyanosis or clubbing. No ascites. Pulses: Dorsalis pedis and posterior tibial pulses +1 to +2 both sides. ABDOMEN: Soft. Nontender. Bowel sounds active. No CVA tenderness. No mass felt. EXTREMITIES: 3+ edema. Full range of motion of all extremities, equal. NEUROLOGIC: No focal deficit. Cranial nerves II through XII are grossly intact. No headache, no double vision or headache. SKIN: Not dry. Intact. Turgor - normal. LYMPHATIC: No palpable lymph nodes/no lymphedema. MUSCULOSKELETAL: Normal joints with no swelling. Muscle tone is normal. LABS: Sodium 144, potassium 4.2, chloride 105, bicarb 26, BUN 58, creatinine 2.16, glucose 159, BNP 2180, WBC 10.79, hgb 11.6, hct 37.4 and plt count 129. ABG pH 7.338, pCO2 43.1 and pO2 50. ASSESSMENT: 1. Acute on chronic renal failure 2. Upper respiratory infiltration bronchitis 3. Hypertension 4. Dyslipidemia 5. CAD, status post bypass surgery 6. Aortic valve replacement 7. Dependant edema 8. Chronic kidney disease PLAN: 1. Admit patient to the regular floor 2. IV fluids at 30 ml per hour 3. Hold the Lasix 4. Keep the legs elevated 5. Solu-Medrol Q 8 hour 80mg 6. DUO NEBS Q 6 hours 7. I&O's 8. PT and INR 9. Hold Coumadin for today and tomorrow Will follow the patient in daily rounds. TIME SPENT: More than 70 minutes. MICHLEE
[2016-06-23 11:13] VITALS: BP 147/56; TEMP 97.2
[2016-06-28] MEDS ORDERED: VIT D3 PO SCH (09:00)
[2016-06-28] MEDS ORDERED: B2 PO SCH (09:00)
[2016-06-28] MEDS ORDERED: FOLIC ACID PO SCH (09:00)
[2016-06-28] MEDS ORDERED: B6 PO SCH (09:00)
[2016-06-28] MEDS ORDERED: B12 PO SCH (09:00)
--- NOTE | 2016-06-28 09:32 | ECHOCOLOR ---
Date of Exam: 06/22/16 Ordering Physician: AMANDO CHAMBERS Auscultation: S1, S2 Murmurs: SYSTOLIC Reason for Echo: AORTIC STENOSIS, S/P AORTIC VALVE REPLACEMENT M-Mode Normal Adult Results LV Dimensions Normal Adult Results AoV Opening excursions >1.6 >1.6 LVEDD-base- 3.5-5.8 4.9 Ao root dimensions 2.0-3.7 3.0 LVESD-base- 3.1-4.6 L. Atrium dimensions 1.9-3.8 6.6 Post. Wall thickness 0.8-1.1 1.3 IV septum (thickness) 0.7-1.2 1.3 Post. Wall excursion 0.72-1.3 NORMAL Septal motion PARADOXICAL Systolic motion R. Ventricular cavity 1.5-2.0 3.0 LVEF 60% 45% Paradoxical septal wall motion YES 2-D: NORMAL FUNCTIONING AORTIC VALVE PROTHESIS; PARADOXICAL SEPTAL WALL MOTION, OTHER VALVES--ENLARGED, NO EFFUSION, NO THROMBUS, IVC NON COLLAPSE DOPPLER WITH COLOR FLOW: MILD TO MODERATE AORTIC REGURGITATION, MITRAL REGURGITATION AND PULMONARY REGURGITATION, MODERATE TO SEVERE TRICUSPID REGURGITATION M-MODE: MV: NORMAL AV: PROSTHETIC VALVE FUNCTIONING WELL TV: NORMAL PV: NORMAL CHAMBER SIZE: ENLARGED LEFT ATRIAL AND RIGHT VENTRICLE CAVITIES WALL MOTION: PARADOXICAL SEPTAL WALL MOTION PERICARDIUM: NORMAL INTERPRETATION: 1. LEFT VENTRICULAR HYPERTROPHY WITH MARKEDLY ENLARGED LEFT ATRIAL CAVITY 2. PARADOXICAL SEPTAL WALL MOTION--LEFT VENTRICULAR EJECTION FRACTION 45% 3. NORMALLY FUNCTIONING PORCINE AORTIC VALVE 4. ENLARGED RIGHT VENTRICLE CAVITY 5. MODERATE TO SEVERE TRICUSPID REGURGITATION, MILD TO MODERATE AORTIC REGURGITATION, MILD TO MODERATE MITRAL REGURGITATION, MILD TO MODERATE PULMONARY REGURGITATION 6. EVIDENCE OF PULMONARY HYPERTENSION MTDD
--- NOTE | 2016-06-29 12:49 | DS ---
DATE OF SERVICE: 06/23/16 FINAL DIAGNOSIS: 1. Acute on chronic heart failure 2. Acute on chronic renal failure 3. Leg edema 4. Venous stasis on left anterior lateral francis, healed completely 5. Frequent falls at home 6. Failure to thrive 7. Ataxia 8. Shortness of breath 9. Anemia 10. Hypertension 11. CVA by history 12. Chronic kidney disease 13. Parkinson's disease 14. Atrial fibrillation 15. Dyslipidemia 16. Atrial fibrillation 17. Osteoarthritis 18. Osteoporosis 19. Status post permanent pacemaker 20. Aortic valve replacement one vessel Coronary artery bypass grafting 21. Cholecystectomy VITALS AT DISCHARGE: Blood pressure 153/76, respiratory rate 24, heart 103, temperature 96.5 and saturation 98%. DISCHARGE INSTRUCTIONS: Discharge to [facility] today. Resume home medication per list provided from the nursing staff. Note medication change with the Lasix give 20mg PO on Tue, Tue, Tue and Sat. Note the administration change with Potassium five 10 meq along with the Lasix. Hold Coumadin until instructed by Dr. Brar. Please do PT INR on Tuesday and call with results. MEDICATIONS AT DISCHARGE: Albuterol Lumigan Ferrous Sulfate Lasix Lopressor Multivitamin Folgard Tablet Trihexyphenidyl hydrochloride Protonix Micro-K Coumadin- on hold NEW PRESCRIPTIONS: Medrol Dose Pedro , give as directed KAELYN DAO four times a day DIET INSTRUCTIONS: As tolerated. Meteorology Instructor please consult for optimal nutritional needs. Consistent carbohydrates. ACTIVITY: May participate in penitentiary activity program as tolerated. PT/OT/ Speech please evaluate and treat as indicated. To the dining room for all meals. SMOKING: Non-smoker DISEASE SPECIFIC EDUCATION: retirement anticoagulation Risk of GI bleed and intracranial bleed been discussed and verbalized understanding. HOSPITAL COURSE: Carole Garduno who is a 81 year old female who was recently discharged from the hospital after lengthy stay secondary to the acute on chronic renal failure and the left leg ulcer. The patient was recently admitted to the hospital and was discharged home but ever since she was home she was not feeling good and not able to walk at all. The patient's family was having trouble taking care of her and the leg edema was getting worse, started wheezing and short of breath. She was brought to the office and saw her and her saturation was 84 on the pulse oximetry and at that time the patient was sent to the emergency room. ABG's done which showed the pH 7.338, pCO2 43.1, pO2 50, BUN and creatinine was little bit elevated 58 and 1.16, BNP was 2180. At that time the patient was admitted to the hospital started with the Solu-Medrol and Rocephin. Her Lasix was held and her legs were kept elevated. Gradually the patient got better. BUN and creatinine came down from 58 BUN to 55 and creatinine 2.16 to 1.72. Wheezing was improved and at that time the patient was elevated for he penitentiary and the patient being discharged to the penitentiary with clear instruction to keep the legs elevated, No salt diet and came participate in the penitentiary activities. Hold the Coumadin for two days. Please do the PT and INR on Tuesday and report it to the unified communications architect physician to get the order for the Coumadin dosage. TIME SPENT: More than 45 minutes today. MICHELE
== END 2016-06-23 12:05 | DRG 292 ==
LOC: ED 12:35 → MEDSURG A 17:41
PROVIDERS: ADMIT Emergency Medicine; ATTEND Emergency Medicine
DX: I50.9 Heart failure, unspecified (principal); N17.9 Acute kidney failure, unspecified; N18.3 Chronic kidney disease, stage 3 (moderate); R60.0 Localized edema; I51.7 Cardiomegaly; I87.8 Other specified disorders of veins; R06.02 Shortness of breath; R27.0 Ataxia, unspecified; R62.7 Adult failure to thrive; I48.91 Unspecified atrial fibrillation; I10 Essential (primary) hypertension; G20 Parkinson's disease; I35.1 Nonrheumatic aortic (valve) insufficiency; I34.0 Nonrheumatic mitral (valve) insufficiency; I27.2 Other secondary pulmonary hypertension; E78.5 Hyperlipidemia, unspecified; R29.6 Repeated falls; Z79.01 Long term (current) use of anticoagulants; Z79.899 Other long term (current) drug therapy; Z95.1 Presence of aortocoronary bypass graft; Z95.2 Presence of prosthetic heart valve; R23.0 Cyanosis
CPT/HCPCS: 36415; 80053; 82550; 82803; 83605; 83880; 84484; 85007; 85025; 85379; 85610; 87040; 87081; 93005; 93010; 94640; 96374; 99284

== ENCOUNTER 2016-06-24 08:43 | Outpatient (CLI) ==
[2012-11-24 04:08] VITALS: TEMP 97.1
== END 2016-06-24 08:44 | disposition home or self-care (01) ==
LOC: AMBL 08:43
PROVIDERS: ATTEND Emergency Medicine
DX: R40.20 Unspecified coma (principal); R09.89 Other specified symptoms and signs involving the circulatory and respiratory systems; I48.0 Paroxysmal atrial fibrillation; I10 Essential (primary) hypertension; Z95.0 Presence of cardiac pacemaker; Z95.2 Presence of prosthetic heart valve